=== PATIENT | male | born 1965 | race Caucasian/White ===

== ENCOUNTER 2019-03-23 20:02 | Inpatient (IN) | payer BC ==
[~2019-03-23] VITALS: Ht 177.8 cm; Wt 89.8 kg
[2019-03-23 20:19] VITALS: BP 153/89
[2019-03-23] MEDS ORDERED: LISINOPRIL10 MG (20:25)
[2019-03-23] MEDS ORDERED: LIORESAL 10 MG10 MG (20:25)
[2019-03-23] MEDS ORDERED: ZANAFLEX4 MG (20:26)
[2019-03-23] MEDS ORDERED: TRAMADOL 50 MG50 MG (20:26)
[2019-03-23] MEDS ORDERED: NEURONTIN 400400 M1 (20:27)
[2019-03-23 20:42] LABS: URINE BILIRUBIN NEGATIVE (Negative); URINE BLOOD NEGATIVE (Negative); URINE CLARITY CLEAR; URINE COLOR YELLOW; URINE GLUCOSE-RANDOM NEGATIVE (Negative); URINE KETONES TRACE (Negative); URINE LEUKOCYTES-REFLEX NEGATIVE (Negative); URINE NITRITE-REFLEX NEGATIVE (Negative); URINE PROTEIN NEGATIVE (Negative); URINE SPECIFIC GRAVITY 1.015 (1.005-1.030); URINE UROBILINOGEN 0.2 E.U./dl (0.2-1.0)
[2019-03-23 20:54] LABS: ABSOLUTE EOSINOPHILS 0.1 thou/uL (0.0-0.7); ABSOLUTE LYMPHOCYTES 3.8 thou/uL (0.8-5.3); ABSOLUTE MONOCYTES 0.7 thou/uL (0.0-1.2); ABSOLUTE NEUTROPHILS 7.1 thou/uL (1.6-8.1); BASOPHILS 0.4 %; EOSINOPHILS 0.8 %; HEMATOCRIT 32.4 % (42.0-52.0); HEMOGLOBIN 9.7 gm/dL (14.0-18.0); LYMPHOCYTES 32.8 %; MCH 19.4 pg (26.0-34.0); MCV 64.7 fL (80.0-100.0); MONOCYTES 5.6 %; NUCLEATED RBCS 0 /100WBC; PLATELET COUNT* 642 thou/uL (150-400); POLYS 60.4 %; RDW-CV 19.7 % (10.5-14.5); WBC 11.7 thou/uL (4.0-11.0)
[2019-03-23 21:02] LABS: CREATININE 1.1 mg/dL (0.6-1.3); POTASSIUM 3.6 mmol/L (3.5-5.1); PROTIME 10.6 Seconds (9.20-11.50)
[2019-03-23 21:07] LABS: ALBUMIN 4.6 g/dL (3.4-5.0); TOTAL BILIRUBIN 0.4 mg/dL (<0.1-1.0); TOTAL PROTEIN 8.6 g/dL (6.4-8.2)
[2019-03-23 21:18] LABS: OVALOCYTES 1+; PLATELET ESTIMATE INCREASED
[2019-03-23 21:19] LABS: ANISOCYTOSIS 1+; MICROCYTES 3+
[2019-03-23 21:20] LABS: HYPOCHROMASIA 2+
[2019-03-24] VITALS (8 sets, daily range): BP systolic 132–225; BP diastolic 54–98
[2019-03-24 09:11] LABS: HEMATOCRIT 29.8 % (42.0-52.0); HEMOGLOBIN 9.2 gm/dL (14.0-18.0); MCH 20.2 pg (26.0-34.0); MCHC 30.8 g/dL (28.0-37.0); MCV 65.5 fL (80.0-100.0); MPV 6.7 fl. (7.2-11.1); RBC 4.55 mil/uL (4.50-6.00); RDW-CV 19.6 % (10.5-14.5); WBC 7.5 thou/uL (4.0-11.0)
[2019-03-24 09:42] LABS: CALCIUM 8.8 mg/dL (8.5-10.1); CREATININE 0.8 mg/dL (0.6-1.3); POTASSIUM 3.7 mmol/L (3.5-5.1)
[2019-03-24 12:58] LABS: % SATURATION 4 % (20-39); IRON 19 ug/dL (50-175)
--- NOTE | 2019-03-24 14:49 | EKG ---
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
[2019-03-25 04:36] LABS: CALCIUM 9.2 mg/dL (8.5-10.1); CREATININE 0.8 mg/dL (0.6-1.3); MAGNESIUM 2.1 mg/dL (1.8-2.4); POTASSIUM 3.7 mmol/L (3.5-5.1)
[2019-03-25 07:10] VITALS: BP 141/83
[2019-03-25 10:10] LABS: GLYCOHEMOGLOBIN (HGB A1C) 6.9 % (4.8-5.6)
[2019-03-25 16:36] VITALS: BP 136/70
[2019-03-25 19:30] VITALS: BP 135/69
[2019-03-26 03:59] LABS: HEMATOCRIT 26.5 % (42.0-52.0); HEMOGLOBIN 8.2 gm/dL (14.0-18.0); MCH 20.1 pg (26.0-34.0); MCHC 30.9 g/dL (28.0-37.0); MCV 65.3 fL (80.0-100.0); MPV 7.1 fl. (7.2-11.1); RBC 4.06 mil/uL (4.50-6.00); RDW-CV 20.8 % (10.5-14.5); WBC 7.4 thou/uL (4.0-11.0)
[2019-03-26 04:12] LABS: CALCIUM 8.6 mg/dL (8.5-10.1); CREATININE 0.8 mg/dL (0.6-1.3); MAGNESIUM 2.2 mg/dL (1.8-2.4); POTASSIUM 3.7 mmol/L (3.5-5.1)
[2019-03-26 07:50] VITALS: BP 130/70
[2019-03-26] MEDS ORDERED: NEURONTIN600 MG PO (08:21)
[2019-03-26] MEDS ORDERED: ZANAFLEX4 MG PO ×2 (08:22→08:23)
[2019-03-26] MEDS ORDERED: TRAMADOL 50 MG50 MG PO (08:22)
[2019-03-26] MEDS ORDERED: LIORESAL 10 MG10 MG PO (08:23)
[2019-03-26] MEDS ORDERED: LISINOPRIL10 MG PO (08:24)
[2019-03-26] MEDS ORDERED: REMERON15 MG PO (08:25)
[2019-03-26] MEDS ORDERED: TYLENOL EXTRA500 MG PO (08:26)
[2019-03-26] MEDS ORDERED: CLARITIN10 MG PO (08:26)
[2019-03-26] MEDS ORDERED: COSAMIN DS TAB1 EACH PO (08:27)
[2019-03-26] MEDS ORDERED: CALCITRATE200 MG PO (08:28)
[2019-03-26] MEDS ORDERED: SUPER B COMPLE1 EAC2 PO (08:28)
[2019-03-26] MEDS ORDERED: MELATONIN5 M1 PO (08:29)
[2019-03-26] MEDS ORDERED: VITAMIN D400 UNIT PO (08:29)
[2019-03-26 08:36] VITALS: BP 135/69
[2019-03-26] MEDS ORDERED: PROTONIX40 M1 PO (08:39)
[2019-03-26] MEDS ORDERED: ZANTAC 150MG T150 MG PO (08:40)
[2019-03-26 11:21] VITALS: BP 135/69
[2019-03-26] MEDS ORDERED: IRON325 PO (15:26)
--- NOTE | 2019-03-27 12:09 | CON ---
[address] [address] CONSULTATION Name: YOSIJOSELYN FONTENOT Room: [address] IN .R.#: [id number] Admission: 03/23/19 Attend Phys: Chris Guadarrama MD Discharge: 03/26/19 Date of : 61 Report #: [id number] THIS REPORT FOR: //name// CC: Chris Naidu DICTATED BY: Marizol Small [facility] DATE OF SERVICE: 03/24/2019 PRIMARY CARE PHYSICIAN: Maureen Naidu MD Please note at the time of this dictation, the patient was seen and physically examined by myself. REASON FOR CONSULTATION: Abdominal pain. HISTORY OF PRESENT ILLNESS: This 53-year-old male who presented to the Emergency Room with complaints of abdominal cramping. He states he has been having this for the last 4-5 days prior to his visit and he is to see Dr. Doshi later on this week, but he could not stand the discomfort any longer and prompted him to come in. The patient states he has been able to have some relief after taking some bisacodyl and attempting for himself to vomit. He does not really have significant gas and bloating; however, he is belching. He has passed a little bit of gas, but he has not had any significant bowel movement for several days. He has placed himself on a liquid diet over the past several days prior to being admitted. He is noted his urine output to be normal, but with decreased stool production with this episode he has noted. The patient underwent an EGD and a colonoscopy back in 2013, he was noted at that time in May, he had esophagitis and he had a duodenal ulcer that noted a stricture. He was to have a repeat. He came back and had a repeat in July of that year, indicating a duodenal ulcer and duodenal stricture was noted. He was dilated with 15 at that time. He was again instructed to follow up and he did in the first part 2014 where he was again noted to have grade D esophagitis. He had a duodenal stricture and was dilated again with 15-16 mm balloon and was placed on erythromycin for the next 3 months. Colonoscopy done in 2013 with a fair prep, just showed moderate internal hemorrhoids. Repeat colon in 5 years. The patient denies taking any NSAIDs. He states he has not been having any issues with acid reflux and has not been taking anything for that for some time. ALLERGIES: PENICILLIN. HOME MEDICATIONS: Lisinopril, baclofen, Ultram, Zanaflex and Neurontin. PAST MEDICAL HISTORY: Significant for his abdominal cramping, back pain [place] [address] CONSULTATION Name: JOSELYN DELUCA Room: [address] IN M.R.#: [id number] Admission: 03/23/19 Attend Phys: Chris Guadarrama MD Discharge: 03/26/19 Date of : 61 Report #: [id number] PAST SURGICAL HISTORY: Negative, just EGD and colonoscopy. FAMILY HISTORY: Negative for any GI or female cancers. SOCIAL HISTORY: Denies any alcohol, tobacco or illegal drug use. REVIEW OF SYSTEMS: Twelve-point review of systems is essentially negative except what is mentioned in the HPI. PHYSICAL EXAMINATION: VITAL SIGNS: Temperature 36.9, pulse 64, respirations 12, blood pressure 155/86. HEART: Regular rate and rhythm. LUNGS: Diminished, but clear. ABDOMEN: Soft, positive bowel sounds in all 4 quadrants with generalized tenderness noted throughout, but more so in the left upper and epigastric region. LABORATORY DATA: Hemoglobin 9.2, white count on admission was 11.7 and now is 7.5, platelets 495, MCV is 65. LFTs are normal. GFR is 100. Lipase is 107. PT/INR 10.[address] of the abdomen and pelvis shows small amount of fluid surrounding the pancreatic head, mildly increased small bowel fluid, nonspecific finding. X-ray showed increased gas in the colon and small bowel, questionable ileus. IMPRESSION: 1. Abdominal pain. 2. Nausea and vomiting. 3. Questionable ileus. 4. Leukocytosis, resolved. 5. History of grade D esophagitis, duodenal ulcer with stricture and dilatation in 2013 and 2014. 6. Anemia. PLAN: 1. EGD tomorrow. 2. Dulcolax suppository. 3. Abdominal x-ray today. 4. Antacid 100 an hour. 5. Labs, ferritin, iron, TIBC and B12. 6. Further recommendations to be made once Dr. Mcke[place] [address] CONSULTATION Name: JOSELYN DELUCA Room: [address]#: [id number] Admission: 03/23/19 Attend Phys: Chris Guadarrama MD Discharge: 03/26/19 Date of : 61 Report #: [id number] Thank you for allowing us to participate in this patient's care. Please do not hesitate to call with any questions in regard to this consult. <ELECTRONICALLY SIGNED> By: Braxton Mckeon DO 03/27/19 1209 1225 [id number] Mckeon DO /nt
--- NOTE | 2019-03-28 11:05 | PATH ---
[address] [address] PATHOLOGY RPT PROCEDURE Name: ANIL DELUCA Room: [address] IN .R.#: [id number] Admission: 03/23/19 Date of : 61 Discharge: 03/26/19 Report #: [id number] Path Case #: [id number] [facility] Accession Number: [id number] . 01 Material submitted: . stomach - ANTRAL BIOPSY . 01 Clinical history: . Rule out H. pylori . 02 Diagnosis: Antral biopsy: - No diagnosis rendered. See comment. LBQ/03/26/2019 . 02 Comment: No tissue survived processing. (ARABELLA/db; 03/26/2019) . 02 Electronically signed: . Elpidio Baca MD, Pathologist NPI- [id number] . 01 Gross description: . Received in formalin labeled "Christian, Anil, antral BX," are multiple minute segments of gage soft tissue measuring 0.2 x 0.1 x 0.1 cm in aggregate dimensions. The specimen is filtered and entirely submitted in cassette A1. Due to the minute nature of the specimen, it may not survive processing. (TSD; 03/25/2019) TOB/TOB . 02 Pathologist provided ICD-10: R10.9 . 02 CPT . 492928 Specimen Comment: A courtesy copy of this report has been sent to Specimen Comment: [phone], , . Specimen Comment: Report sent to ,DR PALUMBO / DR SEGURA Performed at: [address], [place] [id number] MD Gadiel Calvin MD Phone: [phone] Performed at: 02 [facility] [address], [place], [place] [id number] MD Elpidio Baca MD Phone: [phone]
== END 2019-03-26 16:05 | disposition home or self-care (01) | DRG 377 ==
LOC: M.ERS 20:02 → M.ORTHSURG 22:59 → M.TBA-ER 22:59 → M.ORTHSURG 03-24 01:22
PROVIDERS: Emergency Medicine; Nurse Practitioner Adult Health; ADMIT Internal Medicine
PROC: 0DB68ZX Excision of Stomach, Via Natural or Artificial Opening Endoscopic, Diagnostic (ICD-10-PCS; principal; 2019-03-25)
DX: K26.4 Chronic or unspecified duodenal ulcer with hemorrhage (principal); K85.90 Acute pancreatitis without necrosis or infection, unspecified; K56.7 Ileus, unspecified; R65.10 Systemic inflammatory response syndrome (SIRS) of non-infectious origin without acute organ dysfunction; K31.84 Gastroparesis; D72.829 Elevated white blood cell count, unspecified; R73.9 Hyperglycemia, unspecified; G89.29 Other chronic pain; M54.9 Dorsalgia, unspecified; D50.9 Iron deficiency anemia, unspecified; K44.9 Diaphragmatic hernia without obstruction or gangrene; K21.0 Gastro-esophageal reflux disease with esophagitis; K86.89 Other specified diseases of pancreas; Z88.0 Allergy status to penicillin; Z79.899 Other long term (current) drug therapy